=== PATIENT | female | born 1970 | race American Indian/Alaskan Native ===

== ENCOUNTER 2017-01-20 17:40 | Emergency (ER) | payer MEDICAID ==
[2017-01-20 17:48] VITALS: RESP 16; TEMP 98.3; O2SAT 100
--- NOTE | 2017-01-20 18:16 | ED PDOC ---
Arrival/HPI - General Historian: Patient - History of Present Illness Time/Duration: Other (1 month) Symptom Course: Intermittent Quality: Other Context: Home <Roxi Cabrera Nellie - Last Filed: 01/20/17 18:42> <Elizabeth Ferrell - Last Filed: 01/20/17 20:51> - General Chief Complaint: Abdominal Pain Time Seen by Provider: 01/20/17 18:03 - History of Present Illness Narrative History of Present Illness (Text): 01/20/17 18:13 A 46 year old female, whose past medical history includes , presents to the emergency department complaining of intermittent left flank and suprapubic pain for 1 month. Patient notes associated urinary urgency and frequency. Patient denies any fever, chills, nausea, vomiting, diarrhea, chest pain, shortness of breath or any other complaints. Patient reports she missed her last obgyn appointment. (Elier Cabreradiomedes Ballard) Past Medical History - Provider Review Nursing Documentation Reviewed: Yes - Psychiatric Hx Psychophysiologic Disorder: No Hx Substance Use: No <Roxi Cabrera Nellie - Last Filed: 01/20/17 18:42> Family/Social History - Physician Review Nursing Documentation Reviewed: Yes Family/Social History: No Known Family HX Smoking Status: Never Smoked Hx Alcohol Use: No Hx Substance Use: No <Roxi Cabrera - Last Filed: 01/20/17 18:42> Allergies/Home Meds <Roxi Cabrera - Last Filed: 01/20/17 18:42> <Elizabeth Ferrell - Last Filed: 01/20/17 20:51> Allergies/Adverse Reactions: Allergies No Known Allergies Allergy (Verified 01/20/17 17:42) Home Medications: Home Meds Medication Instructions Recorded Confirmed Multivitamin/Iron/Folic Acid 1 tab PO DAILY 01/20/17 01/20/17 [Centrum Adults Tablet] Review of Systems - Physician Review All systems were reviewed & negative as marked: Yes - Review of Systems Constitutional: absent: Fevers, Night Sweats Respiratory: absent: SOB Cardiovascular: absent: Chest Pain Gastrointestinal: Abdominal Pain (left suprapubic pain). absent: Diarrhea, Nausea, Vomiting Genitourinary Female: Frequency (/Urgency) Musculoskeletal: Other (Left flank pain) <DeborahElieriva Y - Last Filed: 01/20/17 18:42> Physical Exam Vital Signs Reviewed: Yes Temperature: Afebrile Blood Pressure: Normal Pulse: Regular Respiratory Rate: Normal Appearance: Positive for: Well-Appearing, Non-Toxic, Comfortable Pain Distress: None Mental Status: Positive for: Alert and Oriented X 3 - Systems Exam Head: Present: Atraumatic, Normocephalic Pupils: Present: PERRL Extroacular Muscles: Present: EOMI Conjunctiva: Present: Normal Mouth: Present: Moist Mucous Membranes Neck: Present: Normal Range of Motion Respiratory/Chest: Present: Clear to Auscultation, Good Air Exchange. No: Respiratory Distress, Accessory Muscle Use Cardiovascular: Present: Regular Rate and Rhythm, Normal S1, S2. No: Murmurs Abdomen: Present: Normal Bowel Sounds. No: Tenderness, Distention, Peritoneal Signs, Rebound, Guarding Back: Present: CVA Tenderness (Left flank tenderness to palpation) Upper Extremity: Present: Normal Inspection, NORMAL PULSES. No: Cyanosis, Edema Lower Extremity: Present: Normal Inspection, NORMAL PULSES. No: Edema, CALF TENDERNESS Neurological: Present: GCS=15, CN II-XII Intact, Speech Normal Skin: Present: Warm, Dry, Normal Color. No: Rashes Psychiatric: Present: Alert, Oriented x 3, Normal Insight, Normal Concentration <Roxi Cabrera - Last Filed: 01/20/17 18:42> Vital Signs Temp Pulse Resp BP Pulse Ox 01/20/17 17:43 98.3 F 78 16 136/86 100 Medical Decision Making - Lab Interpretations I have reviewed the lab results: Yes <Roxi Cabrera - Last Filed: 01/20/17 18:42> <Elizabeth Ferrell - Last Filed: 01/20/17 20:51> ED Course and Treatment: 01/20/17 18:13 Impression: A 46 year old female with left flank and suprapubic pain. Patient notes urinary urgency and frequency. Differential Diagnosis included but are not limited to: UTI Plan: -- Urine culture and Urinalysis -- Motrin -- Reassess and disposition Progress Notes: 01/20/17 18:43 Urinalysis negative. Will order CT abdomen without contrast. 01/20/17 19:[address] Ferrell, pending CT results and disposition. (Roxi Cabrera) - Lab Interpretations Lab Results: Lab Results 01/20/17 18:15: Urine Color Yellow, Urine Appearance Clear, Urine pH 7.0, Ur Specific [place] 1.020, Urine Protein Negative, Urine Glucose (UA) Negative, Urine Ketones Negative, Urine Blood Negative, Urine Nitrate Negative, Urine Bilirubin Negative, Urine Urobilinogen 1.0 H, Ur Leukocyte Esterase Negative - RAD Interpretation Radiology Orders: 01/20/17 18:42 ABD & PELVIS W/O PO OR IV CONT [CT] Stat - Medication Orders Current Medication Orders: Discontinued Medications Ibuprofen (Motrin Tab) 600 mg PO STAT STA Stop: 01/20/17 18:04 Last Admin: 01/20/17 18:31 Dose: 600 mg MAR Pain/Vitals Document 01/20/17 18:31 HI (Rec: 01/20/17 18:31 [place] [facility] [id number] Pain Reassessment Is This A Pain ReAssessment? No Sleep Is patient sleeping during reassessment? No Presence of Pain Presence of Pain Yes Pain Scale Used Pain Scale Used Numeric - Scribe Statement The provider has reviewed the documentation as recorded by the Scribe <Roxi Cabrera - Last Filed: 01/20/17 18:42> <Elizabeth Ferrell - Last Filed: 01/20/17 20:51> - Scribe Statement Beatriz Newell Provider Scribe Attestation: All medical record entries made by the Scribe were at my direction and personally dictated by me. I have reviewed the chart and agree that the record accurately reflects my personal performance of the history, physical exam, medical decision making, and the department course for this patient. I have also personally directed, reviewed, and agree with the discharge instructions and disposition. (Roxi Cabrera) Disposition/Present on Arrival - Present on Arrival History of DVT/PE: No History of Uncontrolled Diabetes: No Urinary Catheter: No History of Decub. Ulcer: No History Surgical Site Infection Following: None <Roxi Cabrera - Last Filed: 01/20/17 18:42> - Present on Arrival Any Indicators Present on Arrival: No - Disposition Have Diagnosis and Disposition been Completed?: Yes Disposition Time: 20:44 Patient Plan: Discharge <Elizabeth Ferrell - Last Filed: 01/20/17 20:51> - Disposition Diagnosis: Pelvic pain, Uterine fibroid Disposition: HOME/ ROUTINE Condition: GOOD Discharge Instructions (ExitCare): Uterine Fibroids (ED), Pelvic Pain (ED) Additional Instructions: Take tramadol as needed for pain Prescriptions: traMADol [Ultram] 50 mg PO STAT #15 tab Referrals: Kuldeep Watters MD [Primary Care Provider] - Follow up with primary Forms: [employer] (Amharic)
[2017-01-20 18:35] LABS: URINE BILIRUBIN NEGATIVE (NEGATIVE); URINE BLOOD NEGATIVE (NEGATIVE); URINE GLUCOSE (UA) NEGATIVE (NEGATIVE); URINE KETONE NEGATIVE (NEGATIVE); URINE LEUKOCYTE ESTERASE NEGATIVE Leu/uL (NEGATIVE); URINE PROTEIN NEGATIVE mg/dL (<30 mg/dL)
[2017-01-20 18:39] LABS: URINE APPEARANCE CLEAR (CLEAR); URINE COLOR YELLOW (YELLOW)
--- NOTE | 2017-01-20 20:18 | CT ---
EXAM: CT Abdomen and Pelvis Without Intravenous Contrast EXAM DATE/TIME: 01/20/2017 6:42 PM CLINICAL HISTORY: 46 years old, female; Pain; Abdominal pain; Flank; Left; Additional info: Left flank pain TECHNIQUE: Axial computed tomography images of the abdomen and pelvis without intravenous contrast. All CT scans at this facility use one or more dose reduction techniques, viz.: automated exposure control; ma/kV adjustment per patient size (including targeted exams where dose is matched to indication; i.e. head); or iterative reconstruction technique. Coronal and sagittal reformatted images were created and reviewed. COMPARISON: There are no prior studies for comparison. FINDINGS: Lower thorax: Heart size is normal. There is minimal atelectasis and scarring at the lung bases ABDOMEN: Liver: unremarkable Gallbladder and bile ducts: unremarkable Pancreas: unremarkable Spleen: unremarkable Adrenals: unremarkable. Kidneys and ureters: unremarkable Stomach and bowel: There are postsurgical changes about the stomach. Rotation is normal. Proximal small bowel is mildly distended. There is no obstruction. There is fluid and air throughout the small bowel. Ileocecal region is unremarkable. Appendix and terminal ileum are unremarkable. There is moderately large amount of stool in the colon. There is minimal diverticulosis. Appendix: See stomach and bowel PELVIS: Bladder: unremarkable Reproductive: Uterus is mildly enlarged. Contours are nodular. There are poorly defined masses. Adnexa are unremarkable. ABDOMEN and PELVIS: Intraperitoneal space: There is no significant fluid. There is no free air. Bones/joints: There are degenerative changes in the osseus structures. Soft tissues: There is a small fat containing umbilical hernia. Vasculature: Vascular structures are unremarkable. There are calcified phleboliths. Lymph nodes: There shotty mesenteric adenopathy Other findings: TheVascular structures are unremarkable. IMPRESSION: No acute solid visceral abnormality; no renal or ureteral stones or hydronephrosis; gastric sleeve; mild ileus, no obstruction; possible constipation; fibroid uterus Additional findings as described above.
--- NOTE | 2017-01-20 20:54 | ED PDOC ---
Physical Exam Vital Signs Reviewed: Yes Vital Signs Temp Pulse Resp BP Pulse Ox 01/20/17 17:43 98.3 F 78 16 136/86 100 Temperature: Afebrile Blood Pressure: Normal Pulse: Regular Respiratory Rate: Normal Medical Decision Making ED Course and Treatment: 01/20/17 19:00 Patient endorsed to me by Dr. Cabrera, pending CT results and disposition. Report Date : 01/20/2017 20:17:00 EXAM: CT Abdomen and Pelvis Without Intravenous Contrast Dictated By: Hyacinth Caballero MD IMPRESSION: No acute solid visceral abnormality; no renal or ureteral stones or hydronephrosis; gastric sleeve; mild ileus, no obstruction; possible constipation; fibroid uterus 01/20/17 20:43 On re-evaluation, patient does not appear to be in any acute distress. I have discussed the results and plan with the patient, who expresses understanding. Patient was informed CT results showed uterine fibroids but no evidence of renal stones or hydronephrosis. Patient in agreement with plan to be discharged home with prescription for Tramadol. Patient is stable for discharge. Patient was instructed to follow up with obgyn or return if symptoms worsen or new concerning symptoms arise. - Lab Interpretations Lab Results: Lab Results 01/20/17 18:15: Urine Color Yellow, Urine Appearance Clear, Urine pH 7.0, Ur Specific [place] 1.020, Urine Protein Negative, Urine Glucose (UA) Negative, Urine Ketones Negative, Urine Blood Negative, Urine Nitrate Negative, Urine Bilirubin Negative, Urine Urobilinogen 1.0 H, Ur Leukocyte Esterase Negative - RAD Interpretation Radiology Orders: 01/20/17 18:42 ABD & PELVIS W/O PO OR IV CONT [CT] Stat - Medication Orders Current Medication Orders: Discontinued Medications Ibuprofen (Motrin Tab) 600 mg PO STAT STA Stop: 01/20/17 18:04 Last Admin: 01/20/17 18:31 Dose: 600 mg MAR Pain/Vitals Document 01/20/17 18:31 HI (Rec: 01/20/17 18:31 HI [facility] [id number]) Pain Reassessment Is This A Pain ReAssessment? No Sleep Is patient sleeping during reassessment? No Presence of Pain Presence of Pain Yes Pain Scale Used Pain Scale Used Numeric Disposition/Present on Arrival - Present on Arrival Any Indicators Present on Arrival: No History of DVT/PE: No History of Uncontrolled Diabetes: No Urinary Catheter: No History of Decub. Ulcer: No History Surgical Site Infection Following: None - Disposition Have Diagnosis and Disposition been Completed?: Yes Diagnosis: Pelvic pain, Uterine fibroid Disposition: HOME/ ROUTINE Disposition Time: 20:43 Patient Problems: Current Active Problems Problem Status Onset Pelvic pain Acute Uterine fibroid Acute Condition: GOOD Discharge Instructions (ExitCare): Uterine Fibroids (ED), Pelvic Pain (ED) Additional Instructions: Take tramadol as needed for pain Prescriptions: traMADol [Ultram] 50 mg PO STAT #15 tab Referrals: Kuldeep Watters MD [Primary Care Provider] - Follow up with primary Forms: [employer] (Eritrean)
[2017-01-20 21:23] VITALS: BP 128/78; PULSE 72
== END 2017-01-20 21:03 | disposition home or self-care (01) ==
LOC: ED 17:40
DX: D25.9 Leiomyoma of uterus, unspecified (principal); R10.2 Pelvic and perineal pain